=== PATIENT | female | born 1955 | race Caucasian/White ===

== ENCOUNTER → 2017-05-21 09:22 | Outpatient (CLI) | payer OTHER ==
--- NOTE | 2017-05-24 18:00 | EEG ---
PATIENT:JUDI HAWKINS DATE OF SERVICE: 05/21/17 MEDICAL RECORD: [id number] DATE OF : 59 LOCATION: [facility] ADMISSION DATE: 05/21/17 REFERRING PHYSICIAN: INTERPRETING PHYSICIAN: TREE CASTELLANOS MD DATE OF SERVICE: 05/21/2017 Referred by myself as an outpatient. ELECTROENCEPHALOGRAM NUMBER: [id number] TECHNICAL DATA: This electroencephalographic recording consists of approximately 20 minutes of data collection utilizing the international 10/20 system of electrode placement and both referential and non-referential montages. Sixteen channels of electrocerebral recording are accompanied by a 17th channel dedicated to the electrocardiographic rhythm and 2 channels of electromyographic recording. Recording is performed in the awake and drowsy states utilizing activation by hyperventilation and photic stimulation. ELECTROENCEPHALOGRAPHIC DATA: The awake state comprises approximately 70% of the recorded electrocerebral activity. Electromyographic artifact is prominent and rapid eye movements are seen. The posterior dominant background consists of a symmetric, semi-rhythmic, waxing and waning 10-11 Hz alpha activity, which is suppressed by eye opening. The drowsy state comprises the remaining portion of the recorded electrocerebral activity. Electromyographic artifact remains prominent. Rapid eye movements are not seen. The posterior dominant background is relatively suppressed. In both waking and drowsy states, occasional sharp waves within the after going slow component are observed in the left frontal region, maximal on this scalp recording at F7. No clinical or electrocerebral seizures are identified. Hyperventilation and photic stimulation induced no abnormal change in the recorded electrocerebral activity. INTERPRETATION: Sharp waves, focal, left frontal (awake and drowsy). This electroencephalographic recording is indicative of an epileptogenic focus of left frontal origin, maximal on this scalp recording at F7. TRANSINT:[id number] Voice Confirmation ID: [id number] DOCUMENT ID: [id number] TREE CASTELLANOS MD at 1800 CC: [id number] DICTATION DATE: 05/23/17 0551 PATIENT FINANCIAL SERVICES MANAGER: 05/23/17 0909 DEP CLI 05/21/17 [facility] [address] [place] [address]
== END | disposition home or self-care (01) ==
LOC: D.CN 09:22
DX: S06.0X1A Concussion with loss of consciousness of 30 minutes or less, initial encounter (principal); G40.101 Localization-related (focal) (partial) symptomatic epilepsy and epileptic syndromes with simple partial seizures, not intractable, with status epilepticus

== ENCOUNTER → 2017-12-24 07:51 | Outpatient (CLI) | payer OTHER | END | disposition home or self-care (01) | LOC: D.MRI 07:51 | DX: M54.6 Pain in thoracic spine (principal) ==

== ENCOUNTER → 2018-01-17 17:19 | Outpatient (CLI) | payer OTHER | END | disposition home or self-care (01) | LOC: D.MAMMO 13:00 | DX: Z12.31 Encounter for screening mammogram for malignant neoplasm of breast (principal) ==